=== PATIENT | male | born 1990 | race African-American/Black ===

== ENCOUNTER 2020-03-27 23:05 | Emergency (ER) | payer SELFPAY ==
[~2020-03-27] VITALS: Ht 177.8 cm; Wt 99.8 kg
[2020-03-27 23:11] VITALS: Ht 177.8 cm; Wt 99.8 kg
[2020-03-28 01:56] VITALS: BP 145/70
== END 2020-03-28 01:56 | disposition other institution (70) ==
LOC: ED 23:05
DX: S41.151A Open bite of right upper arm, initial encounter (principal); W54.0XXA Bitten by dog, initial encounter; Y93.89 Activity, other specified; Y92.89 Other specified places as the place of occurrence of the external cause; Y99.8 Other external cause status
CPT/HCPCS: J1885; J2001

== ENCOUNTER 2020-03-27 23:05 | Emergency (ER) | payer OTHER | END 2020-03-28 01:56 | disposition other institution (70) | LOC: ED 23:05 | DX: Z02.89 Encounter for other administrative examinations (principal) ==